=== PATIENT | female | born 1955 | race Caucasian/White ===

== ENCOUNTER → 2018-10-28 | Outpatient (CLI) | payer OTHER ==
[~2018-10-28] MED LIST: ATEN25TA PO; HYDR-2145 PO
--- NOTE | 2018-10-28 14:58 | CARD ---
MR#: [id number] Date of Study: 10/28/2018 Ordering Physician: SPENCER JONES, Referring Physician: SPENCER JONES, Tech: Cuca Hdez RDCS APPROVED REPORT EXAM: Two-dimensional and M-mode echocardiogram with Doppler and color Doppler. Other Information Quality : Good INDICATION Tachycardia 2D DIMENSIONS RVDd2.2 (2.9-3.5cm)Left Atrium(2D)3.2 (1.6-4.0cm) IVSd1.0 (0.7-1.1cm)Aortic Root(2D)2.7 (2.0-3.7cm) LVDd4.1 (3.9-5.9cm)LVOT Diameter2.0 (1.8-2.4cm) PWd1.1 (0.7-1.1cm)LVDs2.0 (2.5-4.0cm) FS (%) 30.0 %SV62.6 ml LVEF(%)60.0 (>50%) Aortic Valve AoV Peak Johnny.154.0cm/sAoV VTI35.3cm AO Peak GR.9.5mmHgLVOT Peak Johnny.126.5cm/s LVOT VTI 29.65cmAO Mean GR.5mmHg HANNAH (VMAX)2.19bv0HOF (VTI)2.58cm2 Mitral Valve MV E Tawyxqqw915.0cm/sMV DECEL [id number] MV A Qmhmheqh07.4cm/sMV FEO33jc E/A Ratio1.5MVA (PHT)3.43cm2 TDI E/Lateral E'10.4E/Medial E'14.4 Pulmonary Vein S1 Ozigbjen71.6cm/sD2 Ctmlgnxi26.8cm/s LEFT VENTRICLE The left ventricle is normal size. There is normal left ventricular wall thickness. The left ventricu lar systolic function is normal and the ejection fraction is within normal range. The Ejection Fracti on is 55-60%. There is normal LV segmental wall motion. Transmitral Doppler flow pattern is Grade I-a bnormal relaxation pattern. RIGHT VENTRICLE The right ventricle is normal size. The right ventricular systolic function is normal. ATRIA The left atrium size is normal. The right atrium size is normal. The interatrial septum is intact wit h no evidence for an atrial septal defect or patent foramen ovale as noted on 2-D or Doppler imaging. AORTIC VALVE The aortic valve is normal in structure and function. Doppler and Color Flow revealed no significant aortic regurgitation. There is no significant aortic valvular stenosis. MITRAL VALVE The mitral valve is calcified but opens well. There is no evidence of mitral valve prolapse. There is no mitral valve stenosis. Doppler and Color-flow revealed trace to mild mitral regurgitation. TRICUSPID VALVE The tricuspid valve is normal in structure and function. Doppler and Color Flow revealed no tricuspid valve regurgitation noted. There is no tricuspid valve stenosis. PULMONIC VALVE The pulmonary valve is normal in structure and function. Doppler and Color Flow revealed no pulmonic valvular regurgitation. There is no pulmonic valvular stenosis. GREAT VESSELS The aortic root is normal in size. The ascending aorta is normal in size. The IVC is normal in size a nd collapses >50% with inspiration. PERICARDIAL EFFUSION There is no evidence of significant pericardial effusion. Critical Notification Critical Value: No <Conclusion> The left ventricle is normal size. The left ventricular systolic function is normal and the ejection fraction is within normal range. The Ejection Fraction is 55-60%. There is no significant aortic valvular stenosis. Doppler and Color Flow revealed no significant aortic regurgitation. Doppler and Color-flow revealed trace to mild mitral regurgitation. Doppler and Color Flow revealed no tricuspid valve regurgitation noted. Signed by : Bon Santana MD Electronically Approved : 10/28/2018 14:57:31
== END | disposition home or self-care (01) ==
LOC: ECHO 13:09
PROVIDERS: ATTEND Internal Medicine
DX: R00.0 Tachycardia, unspecified (principal); E05.90 Thyrotoxicosis, unspecified without thyrotoxic crisis or storm
CPT/HCPCS: 93306

== ENCOUNTER → 2018-12-22 | Outpatient (CLI) | payer OTHER ==
[~2018-12-22] MED LIST changes: +GADOBUTROL 10 MMOL/10 ML VIAL IV ONE
--- NOTE | 2018-12-22 17:36 | KCIC ---
NECK ORBIT FACE W/WO CONTRAST History: Graves orbitopathy, new eye swelling and visual changes since July TECHNIQUE: Multiplanar, multi sequential pre and postcontrast MR imaging was performed with attention to the orbits. Comparison: None. Findings: There is significant enlargement and enhancement of the extraocular muscles including the superior, medial, inferior, lateral rectus muscles bilaterally. There is strandy change of the intraconal fat bilaterally greater on the right extending about the extraocular muscles, no discrete focal fluid collection. There is no significant enhancement of optic nerves. There is proptosis bilaterally. Impression: 1. There is significant enlargement of the extraocular muscles bilaterally also with strandy change and enhancement of the intraconal fat, evidence of thyroid associated orbitopathy. There is bilateral proptosis. Electronically signed by: Luis Fernando Limon MD (12/22/2018 5:33 PM) [id number]
== END | disposition home or self-care (01) ==
LOC: KCIC MRI 12:39
PROVIDERS: ATTEND Specialist
DX: E05.00 Thyrotoxicosis with diffuse goiter without thyrotoxic crisis or storm (principal); M62.89 Other specified disorders of muscle; H05.20 Unspecified exophthalmos
CPT/HCPCS: 70543; A9585